=== PATIENT | female | born 1960 | race Caucasian/White ===

== ENCOUNTER → 2021-06-23 12:01 | Outpatient (CLI) | payer MEDICARE, SELFPAY ==
--- NOTE | ~2021-06-23 | MM_ITS ---
EXAMINATION: MM screening nemesio BI w portia HISTORY: Screening mammogram TECHNIQUE: Craniocaudal and mediolateral oblique 3-D tomosynthesis images were obtained and synthetic 2-D images were generated. CAD analysis was submitted and interpreted. COMPARISON: October 04, 2017 bilateral digital screening mammogram BREAST PARENCHYMAL COMPOSITION: There are scattered areas of fibroglandular density. FINDINGS: There is no evidence of suspicious mass, calcification, or architectural distortion to sugg est malignancy in either breast. There has been no suspicious interval change. IMPRESSION: 1. No mammographic evidence of malignancy. 2. Recommend routine screening mammography in one year. BI-RADS Category 1: Negative Reviewed, dictated and finalized at location A.
== END ==
PROVIDERS: PCP Registered Nurse; Visit Provider Registered Nurse
DX: Z12.31 Encounter for screening mammogram for malignant neoplasm of breast (principal)
CPT/HCPCS: 77063; 77067

== ENCOUNTER 2024-07-17 13:00 | Outpatient (CLI) | payer MEDICARE, SELFPAY ==
--- NOTE | ~2024-07-17 | US_ITS ---
EXAMINATION: US thyroid DATE: 07/17/2024 13:34 INDICATION: Pharyngeal dysphagia. TECHNIQUE: Multiple ultrasound images of the thyroid were obtained. COMPARISON: None. FINDINGS: The right thyroid lobe measures 3.9 x 1.4 x 1.4 cm. The left thyroid lobe measures 3.9 x 1.0 x 1.0 c m. In the left thyroid lobe, there is an 8 mm solid, very hypoechoic, wider than tall nodule with sm ooth margin without echogenic foci (TI-RADS TR4). In the left thyroid lobe, there is a 6 mm solid, ve ry hypoechoic, wider than tall nodule with smooth margin without echogenic foci (TR4). In the left th yroid lobe, there is a 5 mm solid, hypoechoic, wider than tall nodule with smooth margin without echo genic foci (TR4). In the right thyroid lobe, there are 5 mm and 3 mm nodules. IMPRESSION: 1. Small thyroid nodules, likely not clinically significant. No follow-up is needed. Reviewed, dictated and finalized at location A. [employer] IMPRESSION: 1. Small thyroid nodules, likely not clinically significant. No follow-up is ne eded.
== END 2024-07-17 13:01 | disposition home or self-care (01) ==
LOC: MICIMG 13:03
PROVIDERS: PCP Registered Nurse; Visit Provider Registered Nurse
DX: R13.13 Dysphagia, pharyngeal phase (principal); E04.2 Nontoxic multinodular goiter
CPT/HCPCS: 76536